=== PATIENT | male | born 1965 | race Caucasian/White ===

== ENCOUNTER → 2016-09-05 | Outpatient (CLI) | payer OTHER ==
[~2016-09-05] MED LIST: HYDR1TAB PO; [UNRECOGNIZED DRUG - REMARK]
--- NOTE | 2016-09-05 18:58 | Diagnostic Imaging Report ---
EXAMINATION: Four views of the cervical spine. INDICATION: Neck pain. FINDINGS: There is straightening of the lordotic curvature which could be secondary to muscle spasm. The alignment of the posterior spinal line is satisfactory. The vertebral body heights are preserved. Minimal disc height loss in the mid cervical spine levels is seen. Also multilevel anterior osteophytes are noted with minimal posterior osteophytes suggested at C3/4, C4/5, and C5/6 levels. The open-mouth odontoid view is suboptimal. The prevertebral soft tissues appear unremarkable. IMPRESSION: Mid cervical spine degenerative disc changes with posterior osteophytes seen. Straightening of the lordotic curvature is likely secondary to muscle spasm. Dictated by: Dictated on workstation # [id number]
== END ==
LOC: RAD 12:41
PROVIDERS: ATTEND Nurse Practitioner Family
DX: M47.812 Spondylosis without myelopathy or radiculopathy, cervical region (principal)
CPT/HCPCS: 72040

== ENCOUNTER → 2016-10-05 | Outpatient (CLI) | payer OTHER ==
--- NOTE | 2016-10-05 10:54 | Diagnostic Imaging Report ---
PROCEDURE: MR imaging cervical spine without contrast. TECHNIQUE: Multiplanar, multisequence MR imaging of the cervical spine was performed without contrast. INDICATION: Neck pain. FINDINGS: The previous MRI cervical spine exam performed on 09/29/08 noted degenerative disc and bony disease at C4-C5 and C5-C6. On this study, the degenerative changes at those 2 levels are again evident. At C4-C5, there is a disc bulge eccentric to the right. The disc compresses the right ventral aspect of the thecal sac and narrows the AP diameter to approximately 6.7 MM. On the prior exam, the AP diameter of thecal sac at this level was 7.0 MM. As on the prior study, there is narrowing of the neural foramen bilaterally at this level, particularly on the right. At the C5-C6 level, there is also a disc bulge eccentric to the right. The disc narrows the AP diameter of the thecal sac to 6.1 MM. On the prior study, the AP diameter of thecal sac at this level with 6.7 MM. There is also narrowing of the neural foramen bilaterally at this level, particularly on the right. At the C6-C7 level, there is a broad-based disc bulge which narrows the AP diameter of the thecal sac to 9.7 MM. On the prior study, the AP diameter of thecal sac at this level measured 10.2 MM. There is moderate narrowing of the neural foramen bilaterally at this level. At the C7-T1 level, there is also a disc bulge. The disc flattens the ventral aspect of thecal sac and narrows the AP diameter to 9.4 MM. On the prior exam, the AP diameter measured 10.8 MM. There is also mild narrowing of the neural foramen bilaterally at this level. Remainder of the cervical spine is unremarkable for spinal stenosis or nerve root encroachment. There is no abnormal signal arising from the cord or the vertebral bodies to indicate an acute abnormality. There is no sign of a paraspinal mass. IMPRESSION: 1. The degenerative disc and bony disease at C4-C5, C5-C6, C6-C7 and C7-T1 has progressed somewhat since the prior exam. There is slightly greater central stenosis at each of these levels. There is persistent narrowing of the neural foramen bilaterally at these levels, particularly on the right at C4-C5 and C5-C6. 2. There is no acute bony abnormality identified and there is no sign of cord lesion. Dictated by: Dictated on workstation # [id number]
== END ==
LOC: RAD 09:37
PROVIDERS: ATTEND Nurse Practitioner Family
DX: M50.321 Other cervical disc degeneration at C4-C5 level (principal); M48.02 Spinal stenosis, cervical region
CPT/HCPCS: 72141

== ENCOUNTER → 2017-08-19 | Outpatient (CLI) | payer OTHER ==
--- NOTE | 2017-08-19 15:50 | Diagnostic Imaging Report ---
INDICATION: Neck pain. Hypertension. COMPARISON: None. FINDINGS: Two views of the chest are obtained. Heart size is normal. The pulmonary vessels appear unremarkable. There is no pneumothorax, mediastinal widening, or pleural fluid. The lungs are clear. The osseous structures appear unremarkable. IMPRESSION: Negative chest. Dictated by: Dictated on workstation # [id number]
== END ==
LOC: CARD 13:44
PROVIDERS: ATTEND Family Medicine
DX: I10 Essential (primary) hypertension (principal); M54.2 Cervicalgia
CPT/HCPCS: 71046; 93005

== ENCOUNTER 2017-09-23 13:30 | Outpatient (RCR) | payer OTHER | END 2017-10-18 | disposition home or self-care (01) | PROVIDERS: ATTEND Neurological Surgery | DX: R29.898 Other symptoms and signs involving the musculoskeletal system (principal); M79.602 Pain in left arm ==

== ENCOUNTER → 2017-11-11 | Outpatient (CLI) | payer OTHER ==
--- NOTE | 2017-11-11 10:59 | Diagnostic Imaging Report ---
CLINICAL INDICATION: Patient with chronic low back pain with left leg numbness with no exact known injury. EXAM: MRI of the lumbar spine performed without IV contrast sequences include sagittal T2, sagittal T1, sagittal T2 fat-sat, and axial T2. COMPARISON: MRI of the lumbar spine performed without IV contrast dated 02/17/2009. FINDINGS: Limited visualization of distal thoracic spinal cord, conus medullaris, and cauda equina nerve roots show no significant abnormality. The conus medullaris tip is seen at the upper L2 vertebral body level. There is stable appearance to the lumbar spine T1 and T2 signal with no infiltrative process seen. There is minimal high T2 signal involving the L3-L4 and L4-5 levels anteriorly. There is Modic type II degenerative signal changes at the L5-S1 level which is slightly progressed. There are mild to moderately hypertrophic spurs seen throughout the lumbar spine. There is facet arthropathy. T12-L1: There is a stable mild diffuse disc bulge with moderate loss of intervertebral disc height and chronic Schmorl's nodes. There is no significant central canal or neural foramen narrowing. L1-L2: There is a stable diffuse disc bulge with moderate to severe loss of intervertebral disc height and chronic Schmorl's nodes. There is no significant central canal or neural foramen narrowing. L2-L3: There is stable mild bilateral facet arthropathy. There is no significant central spinal canal or neural foramen narrowing. There are chronic Schmorl's nodes again seen. L3-L4: There is progression of a diffuse disc bulge with annular tear involving the posterior and anterior aspects of the disc. There is moderate loss of intervertebral disc height and chronic Schmorl's nodes. There is mild facet arthropathy. There is mild to moderate central canal narrowing, mild left neural foramen narrowing and mild to moderate right neural foramen narrowing. L4-L5: There is progression of a diffuse disc bulge, with mild loss of intervertebral disc height and mild bilateral facet arthropathy and ligamentum flavum buckling. There is mild to moderate central canal narrowing. There is severe right neural foramen narrowing and moderate to severe left neural foramen narrowing. These degenerative findings have progressed. L5-S1: There is progression of a diffuse disc bulge with moderate loss of intervertebral disc height. There is moderate size anterior disc protrusion/herniation. There is moderate left facet arthropathy and mild to moderate right facet arthropathy. There is no significant central canal narrowing. There is severe bilateral neural foramen narrowing. These degenerative findings have progressed. IMPRESSION: There is interval progression of moderate to severe multilevel lumbar spine degenerative disease affecting the mid lower lumbar spine the most. Dictated by: Dictated on workstation # [id number]
== END ==
LOC: RAD 09:40
PROVIDERS: ATTEND Neurological Surgery
DX: M47.816 Spondylosis without myelopathy or radiculopathy, lumbar region (principal)
CPT/HCPCS: 72148

== ENCOUNTER 2018-05-22 13:59 | Outpatient (CLI) | payer OTHER ==
[~2018-05-22] VITALS: Ht 177.8 cm; Wt 87.1 kg
[~2018-05-22 13:59] MED LIST changes: +LOSA100T57 PO; +MELO15TA39 PO; +METO-387 PO; +PANT40TA3 PO
== END 2018-05-22 14:06 | disposition home or self-care (01) ==
LOC: PREOP 13:59
PROVIDERS: ATTEND Surgery
DX: Z01.818 Encounter for other preprocedural examination (principal)

== ENCOUNTER → 2018-05-27 | Day surgery (SDC) | payer OTHER ==
[~2018-05-27] VITALS: Ht 177.8 cm; Wt 87.1 kg
[~2018-05-27] MED LIST changes: +LACTATED RINGERS 1,000 ML IV ONE; +LACTATED RINGERS 1,000 ML IV STA; +PROPOFOL INJECTION 50 ML IV ONE
[2018-05-27 09:10] VITALS: BP 114/83
--- NOTE | 2018-05-27 09:21 | Progress Note-Pre Operative ---
Pre-Operative Progress Note H&P Reviewed The H&P was reviewed, patient examined and no changes noted. Date Seen by Provider: May 27, 2018 Time Seen by Provider: :21 Date H&P Reviewed: May 27, 2018 Time H&P Reviewed: 09:21 Pre-Operative Diagnosis: screening colonoscopy ROSA CHOWDHURY DO May 27, 2018 09:21
--- NOTE | 2018-05-27 10:20 | Progress Note-Post Operative ---
Post-Operative Progess Note Surgeon (s)/Yarn Worker (s) Surgeon ROSA CHOWDHURY DO Yarn Worker: na Pre-Operative Diagnosis screening colonoscopy Post-Operative Diagnosis colon polyp Procedure & Operative Findings Date of Procedure 05/27/18 Procedure Performed/Findings colonoscopy with hot bx polypectomy Anesthesia Type per regional truck driver Estimated Blood Loss Estimated blood loss (mL): min Specimens/Packing Specimens Removed descending colon polyp ROSA CHOWDHURY DO May 27, 2018 10:20
--- NOTE | 2018-05-27 10:24 | Discharge Inst-Simple/Standard ---
Discharge Inst-Standard Discharge Medications New, Converted or Re-Newed RX: RX on Chart Patient Instructions/Follow Up Plan of Care/Instructions/FU: 2 weeks Carlos Alberto Activity as Tolerated: Yes Discharge Diet: Regular Diet (high fiber) ROSA CHOWDHURY DO May 27, 2018 10:24
[2018-05-27 10:35] VITALS: BP 108/69
[2018-05-27 11:05] VITALS: BP 118/75
[2018-05-27 11:10] VITALS: BP 118/75
--- NOTE | 2018-05-27 12:07 | OPERATIVE REPORT ---
DATE OF SERVICE: 05/27/2018 PREOPERATIVE DIAGNOSIS: Screening colonoscopy. POSTOPERATIVE DIAGNOSIS: Descending colon polyp and diverticulosis. PROCEDURE: Colonoscopy with hot biopsy polypectomy. SURGEON: Rosa Carcamo DO ANESTHESIA: Per [employer] INSTALLER. ESTIMATED BLOOD LOSS: None. COMPLICATIONS: None. INDICATIONS: The patient is a 52-year-old male needing screening colonoscopy. He understands risks and benefits of procedure and wished to proceed with procedure. Consent was signed on the chart. DESCRIPTION OF PROCEDURE: The patient was taken to the endoscopy suite, placed in left lateral recumbent position. Timeout was performed. Digital rectal exam was performed. There were no palpable polyps, masses or ulcerations. Scope was inserted in the rectum and advanced all the way to the cecum with minimal difficulty. Prep was adequate. Scope was then slowly retracted back. There were no polyps, masses or ulcerations in the cecum. The scope was then continued to be slowly retracted back into the descending colon, where a small polyp was present, which hot biopsy polypectomy was performed. Scope was then continued to be slowly retracted back. There were no polyps, masses or ulcerations within the remainder of the ascending, transverse, descending and sigmoid colon. Once in the rectum, scope was retroflexed noting no other pathology. Scope was returned to its normal position, slowly withdrawn until completely removed. The patient tolerated the procedure well without any complications. He was taken to the recovery room in stable condition. RECOMMENDATIONS: The patient is recommended high fiber diet due to the minimal amount of diverticulosis in the sigmoid colon. The patient will follow up on pathology in 2 weeks. The patient will need a repeat colonoscopy in 5 years. If he had any issues before that, he should be seen at that time. Job ID: [id number] DocumentID: [id number] Dictated Date: 05/27/2018 10:27:24 Heel Seater Date: 05/27/2018 12:06:46 Dictated By: ROSA CARCAMO DO
== END | disposition home or self-care (01) ==
LOC: ENDO 09:03
PROVIDERS: ATTEND Surgery
DX: Z12.11 Encounter for screening for malignant neoplasm of colon (principal); K63.5 Polyp of colon; K57.30 Diverticulosis of large intestine without perforation or abscess without bleeding; Z83.71 Family history of colonic polyps; I25.10 Atherosclerotic heart disease of native coronary artery without angina pectoris; I10 Essential (primary) hypertension; G47.33 Obstructive sleep apnea (adult) (pediatric); K21.9 Gastro-esophageal reflux disease without esophagitis; Z79.899 Other long term (current) drug therapy

== ENCOUNTER → 2020-08-19 | Outpatient (CLI) | payer OTHER ==
[~2020-08-19] MED LIST changes: -LACTATED RINGERS 1,000 ML IV ONE; -LACTATED RINGERS 1,000 ML IV STA; -METO-387 PO; +MTP25TSR PO; -PANT40TA3 PO; +PANT40TA52 PO; -PROPOFOL INJECTION 50 ML IV ONE
--- NOTE | 2020-08-19 11:09 | Diagnostic Imaging Report ---
INDICATION: Left-sided testicular pain. TECHNIQUE: Real-time grayscale sonographic imaging and color vascular evaluation of the scrotum. CORRELATION STUDY: None. FINDINGS: RIGHT TESTICLE: 4.3 x 2.4 x 3.4 cm. LEFT TESTICLE: 4.5 x 2.4 x 3.3 cm. The testicles are in normal location and demonstrate homogeneous echotexture. There is vascular flow to the testicles. Heterogeneous echotexture about the bilateral epididymides is present. However, there is no appreciable increased vascularity. No significant hydrocele and/or varicoceles. IMPRESSION: 1. Unremarkable appearance of the testicles. 2. There is somewhat heterogeneous appearance about the bilateral epididymides. However, no definitive abnormal increased vascularity to suggest underlying epididymitis. Dictated by: Dictated on workstation # [id number]
== END ==
LOC: RAD 09:00
PROVIDERS: ATTEND Urology
DX: N45.1 Epididymitis (principal)
CPT/HCPCS: 76870

== ENCOUNTER → 2021-10-26 | Outpatient (CLI) | payer OTHER ==
--- NOTE | 2021-10-26 09:39 | Diagnostic Imaging Report ---
PROCEDURE: US Hepatic (Liver). TECHNIQUE: Multiple real-time grayscale images were obtained over the right upper quadrant in various projections. INDICATION: Elevated liver enzymes. COMPARISON: None FINDINGS: Liver is diffusely hyperechoic consistent with hepatic steatosis. No focal hepatic masses are seen. Portal vein shows normal hepatopetal flow. Hepatic veins are patent. There is no sonographic evidence of significant intrahepatic biliary ductal dilatation. Common bile duct is not well visualized. Gallbladder is visualized. There is no cholelithiasis, gallbladder wall thickening, nor pericholecystic free fluid. Pancreas is not well visualized due to overlying bowel gas. Visualized portions of the abdominal aorta and IVC are unremarkable. There is no ascites. Right kidney measures 10 cm in length and has a normal sonographic appearance. There is no evidence of hydronephrosis, calculus, nor mass. IMPRESSION: 1. Hepatic steatosis. 2. No cholelithiasis or sonographic evidence of acute cholecystitis. Dictated by: Dictated on workstation # [id number]
== END ==
LOC: RAD 06:42
PROVIDERS: ATTEND Family Medicine
DX: K76.0 Fatty (change of) liver, not elsewhere classified (principal); R94.5 Abnormal results of liver function studies
CPT/HCPCS: 76705